=== PATIENT | male | born 1935 | race Caucasian/White ===

== ENCOUNTER → 2019-01-05 10:27 | Outpatient (CLI) | payer MEDICARE ==
--- NOTE | 2019-01-07 13:47 | EC ---
PATIENT:LEWIS HUTCHINSON DATE OF SERVICE: 01/05/19 SEX: M MEDICAL RECORD: [id number] DATE OF : 37 LOCATION:[facility] AGE OF PATIENT: 83 ADMISSION DATE: 01/05/19 REFERRING PHYSICIAN: INTERPRETING PHYSICIAN: THERESA ALBERT MD ECHOCARDIOGRAM REPORT ECHO CHARGES 4 ECHO COMPLETE Date: 01/05/19 CLINICAL DIAGNOSIS: H/O CAD/HTN/A-FIB/CVA ECHOCARDIOGRAPHIC MEASUREMENTS (adult normal given) AC root (d.<3.7cm) 3.9 cm LV Septum d (<1.2 cm> 1.4 cm Valve Excursion 1.7 cm LV Septum (systole) 1.6 cm Left Atria (s.<4.0cm> 4.6 cm LVPW d(<1.2cm) 1.2 cm RV (d.<2.3cm) 2.9 cm LVPW (sytole) 1.8 cm LV diastole(<5.6CM) 7.1 cm MV E-F(>70mm/sec) cm LV systole 5.1 cm LVOT Diameter 2.0 cm MV exc.(>10mm) cm Est.ejection fraction (50-75%) % DOPPLER: LVIT cm/sec A cm/sec E 120 cm/sec LA cm/sec RVSP 18.0 mmHg LVOT 82.0 cm/sec AOP1/2T m/s Asc. Ao 157 cm/sec RVOT 60.0 cm/sec RA cm/sec PA 95.0 cm/sec AV Gradient Peak 9.9 mmHg AV Mean 4.1 mmHg AV Area 2.1 cm MV Gradient Peak 7.9 mmHg MV Mean 2.6 mmHg MV Area cm COMMENTS: OP - HC Teller: 1 ALICIA PHIL Service Tech: 3 Dr. Godlsmith TAPE# PACS Pericardial Effusion N DATE OF SERVICE: Adequate 2-D, color-flow and spectral Doppler, and M-mode. LVH is present. LV internal dimension is normal. Wall motion is normal. EF is greater than or equal to 55%. Aortic valve sclerosis without stenosis by Doppler interrogation. Left atrium is dilated at 4.6. Mitral valve shows no prolapse. Mild MR. Right-sided chamber is grossly normal. Mild TR by color flow imaging. 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
== END | disposition home or self-care (01) ==
LOC: D.HCCARDIO 10:27
DX: I25.10 Atherosclerotic heart disease of native coronary artery without angina pectoris (principal)

== ENCOUNTER → 2019-06-30 10:25 | Outpatient (CLI) | payer MEDICARE ==
--- NOTE | 2019-07-06 11:41 | ST ---
PATIENT:LEWIS HUTCHINSON MEDICAL RECORD: [id number] SEX: M LOCATION:[facility] ORDER #: ADMISSION DATE: 06/30/19 AGE OF PATIENT: 84 REFERRING PHYSICIAN: INTERPRETING PHYSICIAN: KAPIL JONES MD DATE OF SERVICE: 06/30/2019 PROCEDURE: Nuclear stress test. INDICATION: Angina, coronary artery disease, hypertension, and hyperlipidemia. He was exercised on standard Lexiscan protocol with 33 mCi of sestamibi injected at peak stress, 11 mCi used previously for rest images. FINDINGS: Gated SPECT reveals a preserved ejection fraction at 63% with good wall motioning and thickening and brightening throughout all segments. SPECT imaging: Cardiolite was used as myocardial perfusion agent. There is reversibility anteroapically and apically. This includes the anteroapical and apical segments only. The degree of reversibility is moderate. The amount of myocardial involved is small. OVERALL IMPRESSION: 1. This is an abnormal nuclear stress test; however, low to intermediate risk with reversibility in a relatively small amount of myocardium anteroapically and apically. 2. Gated SPECT reveals preserved ejection fraction at 63%. In this patient with ongoing symptomatology, the current scan does suggest the presence of hemodynamically significant coronary artery disease; however, the amount of myocardium involved is small with center treatment on medical management. If symptomatology persists, would proceed with coronary angiography. TRANSINT:[id number] Voice Confirmation ID: [id number] DOCUMENT ID: [id number] KAPIL JONES MD at 1141 CC: VANCE GRAHAM MD [id number] DICTATION DATE: 07/02/19 1112 DATA COMMUNICATIONS ENGINEER: 07/03/19 0053 DEP CLI 06/30/19 [place] [id number] [place] [id number]
== END | disposition home or self-care (01) ==
LOC: D.HCCARDIO 10:25
PROVIDERS: ATTEND Internal Medicine Interventional Cardiology
DX: I25.119 Atherosclerotic heart disease of native coronary artery with unspecified angina pectoris (principal)